=== PATIENT | female | born 1940 | race Asian ===

== ENCOUNTER 2016-11-30 12:17 | Inpatient (IN) | payer OTHER ==
[~2016-11-30] VITALS: Ht 154.9 cm; Wt 45.7 kg
[2016-11-30] MEDS ORDERED: IOVERSOL 350 MG/ML 100 ML VIAL ONE (12:46)
[2016-11-30] MEDS ORDERED: SODIUM CHLORIDE 0.9% 100 ML ONE (12:46)
[2016-11-30 13:35] LABS: EOSINOPHILS % (AUTO) 1.6 % (1.0-6.0); HEMOGLOBIN 12.3 g/dL (12.0-16.0); LYMPHOCYTES # (AUTO) 1.9 K/uL (1.0-4.8); LYMPHOCYTES % (AUTO) 29.3 % (22.0-44.0); MEAN CORPUSCULAR HEMOGLOBIN 26.3 pg (26.0-34.0); MEAN CORPUSCULAR HGB CONC 32.3 G/dL (31.0-37.0); MEAN CORPUSCULAR VOLUME 81 fL (80-100); MONOCYTES # (AUTO) 0.4 K/uL (0.1-1.0); MONOCYTES % (AUTO) 5.7 % (2.0-9.0); NEUTROPHILS # (AUTO) 4.1 K/uL (1.8-7.7); NEUTROPHILS % (AUTO) 62.4 % (40.0-70.0); PLATELET COUNT (AUTO) 313 K/uL (150-450); RED BLOOD CELL COUNT(AUTO) 4.66 MIL/uL (4.00-5.20); RED CELL DISTRIBUTION WIDTH 13.8 % (11.5-14.5); WHITE BLOOD COUNT (AUTO) 6.6 K/uL (4.5-11.0)
[2016-11-30 13:46] LABS: PROTHROMBIN TIME 10.8 SEC (9.4-11.6)
[2016-11-30 13:49] LABS: ANION GAP 3 mmol/L (8-16); CALCIUM, TOTAL 8.5 mg/dL (8.8-10.5); CARBON DIOXIDE 30 mmol/L (22-29); CHLORIDE 102 mmol/L (98-107); CREATININE 0.63 mg/dL (0.60-1.30); GLOMERULAR FILTR. RATE CALC > 60 mL/min (>60); SODIUM SERUM 135 mmol/L (136-145); UREA NITROGEN, BLOOD 15 mg/dL (7-18)
[2016-11-30 13:55] LABS: ALANINE AMINOTRANSFERASE 15 U/L (12-78); ALBUMIN 3.3 g/dL (3.4-5.0); ASPARTATE AMINOTRANSFERASE 13 U/L (15-37); BILIRUBIN,TOTAL 0.3 mg/dL (0.1-1.0); CREATINE KINASE, TOTAL 33 U/L (26-192); TOTAL PROTEIN, SERUM 6.8 g/dL (6.4-8.2)
[2016-11-30 14:45] LABS: APPEARANCE,URINE CLEAR (CLEAR); GLUCOSE, URINE (UA) NEGATIVE (NEGATIVE); KETONES,URINE NEGATIVE (NEGATIVE); LEUKOCYTE ESTERASE ,URINE NEGATIVE (NEGATIVE); OCCULT BLOOD,URINE NEGATIVE (NEGATIVE); PH,URINE 7.5 (5.0-8.0); PROTEIN,URINE NEGATIVE (NEGATIVE)
[2016-11-30 14:48] LABS: ADD UA MICROSCOPIC NO
[2016-11-30] MEDS ORDERED: ASPIRIN 325 MG EC TABLET PO ONE ×2 (15:00)
[2016-11-30] MEDS: ASPIRIN 325 MG TABLET PO SCH (15:27)
[2016-11-30] MEDS ORDERED: MAGNESIUM HYDROXIDE SUSPENSION 30 ML UDCUP PO PRN (15:30)
[2016-11-30] MEDS ORDERED: CloNIDine HCL 0.1 MG TABLET PO PRN (15:30)
[2016-11-30] MEDS ORDERED: ACETAMINOPHEN 325 MG TABLET PO PRN ×2 (15:30→16:15)
[2016-11-30] MEDS ORDERED: ALBUTEROL SULFATE 2.5 MG/0.5 ML NEB SOLUTION NEB PRN (15:30)
[2016-11-30] MEDS ORDERED: 0.9% SODIUM CHLORIDE 10 ML SYRINGE IVP PRN (16:15)
[2016-11-30] MEDS ORDERED: ONDANSETRON HCL 4 MG/2 ML VIAL IVP PRN (16:15)
[2016-11-30] MEDS ORDERED: GADOBUTROL 1 MMOL/ML 10 ML VIAL IVP ONE (16:30)
[2016-11-30] MEDS: SIMVASTATIN 40 MG TABLET PO SCH (17:37)
[2016-11-30] MEDS: AmLODIPine BESYLATE 10 MG TABLET PO SCH (17:37)
[2016-11-30] MEDS: HEPARIN SODIUM,PORCINE 5,000 UNITS/ML VIAL SQ SCH (17:37)
[2016-11-30 23:01] VITALS: BP 176/100
[2016-11-30] MEDS: DOCUSATE SODIUM 100 MG CAPSULE PO SCH (23:04)
[2016-11-30] MEDS: LOSARTAN POTASSIUM 25 MG TABLET PO SCH (23:12)
[2016-12-01] MEDS: HEPARIN SODIUM,PORCINE 5,000 UNITS/ML VIAL SQ SCH ×4 (00:28→23:53)
[2016-12-01 04:00] VITALS: BP 112/74
[2016-12-01] MEDS ORDERED: INFLUENZA VIRUS VACCINE QVS 2016-17 (3YR+)/PF 60 MCG/0.5 ML SYRINGE IM ONE (04:30)
[2016-12-01] MEDS ORDERED: PNEUMOCOCCAL VACCINE POLYVALENT 0.5 ML VIAL [PPSV23] IM ONE (05:45)
[2016-12-01 07:20] VITALS: BP 125/58
[2016-12-01] MEDS: SIMVASTATIN 40 MG TABLET PO SCH (08:11)
[2016-12-01] MEDS: LOSARTAN POTASSIUM 25 MG TABLET PO SCH ×2 (08:11→23:53)
[2016-12-01] MEDS: ASPIRIN 325 MG TABLET PO SCH (08:11)
[2016-12-01] MEDS: DOCUSATE SODIUM 100 MG CAPSULE PO SCH ×2 (08:11→20:34)
[2016-12-01] MEDS: PANTOPRAZOLE SODIUM 40 MG DR TABLET PO SCH (08:11)
[2016-12-01] MEDS: AmLODIPine BESYLATE 10 MG TABLET PO SCH (08:11)
[2016-12-01 11:23] VITALS: BP 111/70
[2016-12-01 16:09] VITALS: BP 104/74
[2016-12-01] MEDS ORDERED: SODIUM CHLORIDE 0.9% 1,000 ML IV ONE (16:38)
[2016-12-01 19:18] VITALS: BP 109/66
[2016-12-01 23:47] VITALS: BP 114/72
[2016-12-02 04:16] VITALS: BP 119/70
[2016-12-02 07:23] VITALS: BP 131/72
[2016-12-02] MEDS: HEPARIN SODIUM,PORCINE 5,000 UNITS/ML VIAL SQ SCH ×2 (08:33→15:05)
[2016-12-02] MEDS: SIMVASTATIN 40 MG TABLET PO SCH (08:34)
[2016-12-02] MEDS: PANTOPRAZOLE SODIUM 40 MG DR TABLET PO SCH (08:34)
[2016-12-02] MEDS: AmLODIPine BESYLATE 10 MG TABLET PO SCH (08:34)
[2016-12-02] MEDS: LOSARTAN POTASSIUM 25 MG TABLET PO SCH (08:34)
[2016-12-02] MEDS: DOCUSATE SODIUM 100 MG CAPSULE PO SCH (08:34)
[2016-12-02] MEDS: ASPIRIN 325 MG TABLET PO SCH (08:36)
[2016-12-02 11:10] VITALS: BP 126/71
[2016-12-02] MEDS ORDERED: DSS100 PO (13:39)
[2016-12-02] MEDS ORDERED: AMLO-512 PO (13:39)
[2016-12-02] MEDS ORDERED: ASPI81 PO (13:39)
[2016-12-02] MEDS ORDERED: HEPA500017 SQ (13:40)
[2016-12-02] MEDS ORDERED: SIMV-261 PO (13:41)
[2016-12-02] MEDS ORDERED: PANT40TA25 PO (13:41)
[2016-12-02] MEDS ORDERED: LOSA25TA21 PO (13:41)
[2016-12-02] MEDS ORDERED: ACET-2247 PO (13:42)
[2016-12-02] MEDS ORDERED: ALBU2.5V2 NEB (13:44)
[2016-12-02] MEDS ORDERED: MOM30 PO (13:44)
[2016-12-02] MEDS ORDERED: CLON.1 PO (13:44)
== END 2016-12-02 15:13 | DRG 65 ==
LOC: EDUNIT# 12:17 → EMS 12:20 → 5S 18:11 → 5N 12-01 14:14
PROVIDERS: ADMIT Internal Medicine; ATTEND Internal Medicine
PROC: 3E0234Z Introduction of Serum, Toxoid and Vaccine into Muscle, Percutaneous Approach (ICD-10-PCS; principal; 2016-12-02)
PROC: 3E0234Z Introduction of Serum, Toxoid and Vaccine into Muscle, Percutaneous Approach (ICD-10-PCS; 2016-12-02)
DX: I63.8 Other cerebral infarction (principal); I16.1 Hypertensive emergency; E44.0 Moderate protein-calorie malnutrition; R47.01 Aphasia; I10 Essential (primary) hypertension; Z86.73 Personal history of transient ischemic attack (TIA), and cerebral infarction without residual deficits; Z82.49 Family history of ischemic heart disease and other diseases of the circulatory system; Z23 Encounter for immunization
CPT/HCPCS: 70496; 70544; 70553; 90471; 92507; 92521; 93005; 93306; 93880; 97110; 97116; 97162; 97166; 97530; 97535; 99285; A9585; J1644; J7030; J7050

== ENCOUNTER 2016-12-02 15:15 | Inpatient (IN) | payer OTHER ==
[~2016-12-02] VITALS: Ht 134.6 cm; Wt 41.7 kg
[~2016-12-02 15:15] MED LIST: ACET-2247 PO; ALBU2.5V2 NEB; AMLO-512 PO; ASPI81 PO; CLON.1 PO; DSS100 PO; HEPA500017 SQ; LOSA25TA21 PO; MOM30 PO; PANT40TA25 PO; SIMV-261 PO
[2016-12-02 15:30] VITALS: BP 123/83
[2016-12-02 16:11] VITALS: BP 128/83
[2016-12-02] MEDS ORDERED: ALBUTEROL SULFATE 2.5 MG/0.5 ML NEB SOLUTION NEB PRN (16:30)
[2016-12-02] MEDS ORDERED: MAGNESIUM HYDROXIDE SUSPENSION 30 ML UDCUP PO PRN (16:30)
[2016-12-02] MEDS ORDERED: ACETAMINOPHEN 325 MG TABLET PO PRN (16:30)
[2016-12-02] MEDS ORDERED: CloNIDine HCL 0.1 MG TABLET PO PRN (16:30)
[2016-12-02 20:10] VITALS: BP 134/83
[2016-12-02] MEDS: DOCUSATE SODIUM 100 MG CAPSULE PO SCH (20:19)
[2016-12-02] MEDS: SENNA 187 MG TABLET PO SCH (20:19)
[2016-12-02] MEDS: LOSARTAN POTASSIUM 25 MG TABLET PO SCH (20:20)
[2016-12-02] MEDS: HEPARIN SODIUM,PORCINE 5,000 UNITS/ML VIAL SQ SCH (23:27)
[2016-12-03 00:24] VITALS: BP 145/91
[2016-12-03 01:42] LABS: APPEARANCE,URINE TURBID (CLEAR); GLUCOSE, URINE (UA) NEGATIVE (NEGATIVE); KETONES,URINE NEGATIVE (NEGATIVE); LEUKOCYTE ESTERASE ,URINE NEGATIVE (NEGATIVE); OCCULT BLOOD,URINE NEGATIVE (NEGATIVE); PH,URINE 7.5 (5.0-8.0); PROTEIN,URINE NEGATIVE (NEGATIVE)
[2016-12-03 01:52] LABS: RBC,URINE 0-2 /HPF (0-2); WBC,URINE 0-2 /HPF (0-5)
[2016-12-03 01:53] LABS: AMORPHOUS SEDIMENT,UR Many /LPF (None Seen)
[2016-12-03 05:00] VITALS: BP 151/86
[2016-12-03] MEDS: DOCUSATE SODIUM 283 MG/5 ML MINI-ENEMA PR PRN (05:56)
[2016-12-03 06:44] LABS: BASOPHILS % (AUTO) 0.8 % (0.0-2.0); EOSINOPHILS % (AUTO) 1.2 % (1.0-6.0); HEMATOCRIT 39.6 % (36-46); HEMOGLOBIN 12.7 g/dL (12.0-16.0); LYMPHOCYTES % (AUTO) 21.7 % (22.0-44.0); MEAN CORPUSCULAR HEMOGLOBIN 26.1 pg (26.0-34.0); MEAN CORPUSCULAR HGB CONC 32.1 G/dL (31.0-37.0); MEAN CORPUSCULAR VOLUME 81 fL (80-100); MONOCYTES # (AUTO) 0.6 K/uL (0.1-1.0); MONOCYTES % (AUTO) 6.8 % (2.0-9.0); NEUTROPHILS # (AUTO) 6.3 K/uL (1.8-7.7); NEUTROPHILS % (AUTO) 69.5 % (40.0-70.0); PLATELET COUNT (AUTO) 309 K/uL (150-450); RED BLOOD CELL COUNT(AUTO) 4.87 MIL/uL (4.00-5.20); RED CELL DISTRIBUTION WIDTH 13.9 % (11.5-14.5); WHITE BLOOD COUNT (AUTO) 9.1 K/uL (4.5-11.0)
[2016-12-03 06:59] LABS: ALANINE AMINOTRANSFERASE 19 U/L (12-78); ALBUMIN 3.3 g/dL (3.4-5.0); ANION GAP 6 mmol/L (8-16); ASPARTATE AMINOTRANSFERASE 16 U/L (15-37); BILIRUBIN,TOTAL 0.4 mg/dL (0.1-1.0); CALCIUM, TOTAL 8.7 mg/dL (8.8-10.5); CARBON DIOXIDE 30 mmol/L (22-29); CHLORIDE 106 mmol/L (98-107); GLOMERULAR FILTR. RATE CALC > 60 mL/min (>60); POTASSIUM 3.9 mmol/L (3.5-5.1); SODIUM SERUM 142 mmol/L (136-145); TOTAL PROTEIN, SERUM 7.2 g/dL (6.4-8.2); UREA NITROGEN, BLOOD 18 mg/dL (7-18)
[2016-12-03 07:24] VITALS: BP 156/86
[2016-12-03] MEDS: PANTOPRAZOLE SODIUM 40 MG DR TABLET PO SCH (08:15)
[2016-12-03] MEDS: LOSARTAN POTASSIUM 25 MG TABLET PO SCH ×2 (08:15→20:36)
[2016-12-03] MEDS: DOCUSATE SODIUM 100 MG CAPSULE PO SCH ×2 (08:15→20:36)
[2016-12-03] MEDS: AmLODIPine BESYLATE 10 MG TABLET PO SCH (08:15)
[2016-12-03] MEDS: HEPARIN SODIUM,PORCINE 5,000 UNITS/ML VIAL SQ SCH ×3 (08:20→23:44)
[2016-12-03] MEDS ORDERED: SIMVASTATIN 40 MG TABLET PO SCH (09:00)
[2016-12-03] MEDS ORDERED: ASPIRIN 81 MG CHEWABLE TABLET PO SCH (09:00)
[2016-12-03 12:15] VITALS: BP 140/80
[2016-12-03] MEDS ORDERED: *NON-FORMULARY MED [ENTER DRUG, DOSE, FREQ IN COMMENTS] CLINICAL ONE ×2 (12:45)
[2016-12-03] MEDS: IBUPROFEN 400 MG TABLET PO PRN (13:20)
[2016-12-03] MEDS: [UNRECOGNIZED DRUG - OTHER] OU SCH ×2 (13:21→20:36)
[2016-12-03] MEDS: NAPHAZOLINE HCL OU SCH ×2 (13:21→20:36)
[2016-12-03 15:16] VITALS: BP 133/69
[2016-12-03 20:34] VITALS: BP 146/74
[2016-12-03] MEDS: SENNA 187 MG TABLET PO SCH (20:36)
[2016-12-03] MEDS: FLUTICASONE/SALMETEROL 250 MCG-50 MCG/INH DISKUS INHALER [28] IH SCH (20:36)
[2016-12-04] VITALS: BP 143/90
[2016-12-04] MEDS: DOCUSATE SODIUM 283 MG/5 ML MINI-ENEMA PR PRN (04:46)
[2016-12-04] MEDS: ALENDRONATE SODIUM 70 MG TABLET PO SCH (05:10)
[2016-12-04] MEDS: ACETAMINOPHEN 325 MG TABLET PO PRN (05:11)
[2016-12-04 07:51] VITALS: BP 147/91
[2016-12-04] MEDS: AmLODIPine BESYLATE 10 MG TABLET PO SCH (08:28)
[2016-12-04] MEDS: HEPARIN SODIUM,PORCINE 5,000 UNITS/ML VIAL SQ SCH ×2 (08:28→17:10)
[2016-12-04] MEDS: CITALOPRAM HYDROBROMIDE 20 MG TABLET PO SCH (08:29)
[2016-12-04] MEDS: ATORVASTATIN CALCIUM 40 MG TABLET PO SCH (08:29)
[2016-12-04] MEDS: FLUTICASONE/SALMETEROL 250 MCG-50 MCG/INH DISKUS INHALER [28] IH SCH ×2 (08:29→20:57)
[2016-12-04] MEDS: LOSARTAN POTASSIUM 25 MG TABLET PO SCH ×2 (08:29→20:57)
[2016-12-04] MEDS: CHOLECALCIFEROL (VIT D3) 400 UNITS TABLET PO SCH (08:29)
[2016-12-04] MEDS: FLUTICASONE PROPIONATE 50 MCG/SPRAY 16 GM NASAL SPRAY NASAL SCH (08:29)
[2016-12-04] MEDS: DOCUSATE SODIUM 100 MG CAPSULE PO SCH ×3 (08:29→20:57)
[2016-12-04] MEDS: PANTOPRAZOLE SODIUM 40 MG DR TABLET PO SCH (08:29)
[2016-12-04] MEDS: LISINOPRIL 10 MG TABLET PO SCH (08:29)
[2016-12-04] MEDS: NAPHAZOLINE HCL OU SCH ×2 (08:30→20:57)
[2016-12-04] MEDS: [UNRECOGNIZED DRUG - OTHER] OU SCH ×2 (08:30→20:57)
[2016-12-04] MEDS ORDERED: ASPIRIN/DIPYRIDAMOLE ER 25/200 MG ER CAPSULE PO SCH (09:00)
[2016-12-04] MEDS ORDERED: HYPROMELLOSE 0.5% 15 ML OPHTHALMIC SOLUTION OU PRN (12:30)
[2016-12-04] MEDS: NYSTATIN 500,000 UNITS/5 ML SUSPENSION UDCUP PO SCH ×2 (17:10→20:57)
[2016-12-04 17:45] VITALS: BP 149/88
[2016-12-04] MEDS: IBUPROFEN 400 MG TABLET PO PRN (17:56)
[2016-12-04 20:55] VITALS: BP 157/86
[2016-12-04] MEDS: SENNA 187 MG TABLET PO SCH (20:57)
[2016-12-05] MEDS: HEPARIN SODIUM,PORCINE 5,000 UNITS/ML VIAL SQ SCH ×3 (00:49→20:39)
[2016-12-05 02:00] VITALS: BP 157/86
[2016-12-05] MEDS: ACETAMINOPHEN 325 MG TABLET PO PRN (02:50)
[2016-12-05] MEDS: DOCUSATE SODIUM 283 MG/5 ML MINI-ENEMA PR PRN (05:45)
[2016-12-05 07:00] VITALS: BP 111/58
[2016-12-05] MEDS: FLUTICASONE PROPIONATE 50 MCG/SPRAY 16 GM NASAL SPRAY NASAL SCH (09:06)
[2016-12-05] MEDS: FLUTICASONE/SALMETEROL 250 MCG-50 MCG/INH DISKUS INHALER [28] IH SCH ×2 (09:06→20:39)
[2016-12-05] MEDS: NAPHAZOLINE HCL OU SCH (09:07)
[2016-12-05] MEDS: [UNRECOGNIZED DRUG - OTHER] OU SCH (09:07)
[2016-12-05] MEDS: ASPIRIN 81 MG CHEWABLE TABLET PO SCH (09:07)
[2016-12-05] MEDS: CITALOPRAM HYDROBROMIDE 20 MG TABLET PO SCH (09:08)
[2016-12-05] MEDS: DOCUSATE SODIUM 100 MG CAPSULE PO SCH ×2 (09:08→20:39)
[2016-12-05] MEDS: AmLODIPine BESYLATE 10 MG TABLET PO SCH (09:09)
[2016-12-05] MEDS: NYSTATIN 500,000 UNITS/5 ML SUSPENSION UDCUP PO SCH ×3 (09:09→20:39)
[2016-12-05] MEDS: ATORVASTATIN CALCIUM 40 MG TABLET PO SCH (09:09)
[2016-12-05] MEDS: LISINOPRIL 10 MG TABLET PO SCH (09:10)
[2016-12-05] MEDS: CLOPIDOGREL BISULFATE 75 MG TABLET PO SCH (09:10)
[2016-12-05] MEDS: PANTOPRAZOLE SODIUM 40 MG DR TABLET PO SCH (09:10)
[2016-12-05] MEDS: CHOLECALCIFEROL (VIT D3) 400 UNITS TABLET PO SCH (09:10)
[2016-12-05] MEDS: LOSARTAN POTASSIUM 25 MG TABLET PO SCH ×2 (09:11→20:39)
[2016-12-05 15:38] VITALS: BP 136/65
[2016-12-05 20:38] VITALS: BP 132/73
[2016-12-05] MEDS: SENNA 187 MG TABLET PO SCH (20:39)
[2016-12-05] MEDS: NAPHAZOLINE/PHENIR 0.025-0.3% 15 ML OPHTHALMIC SOLUTION OU SCH (20:40)
[2016-12-06] VITALS: BP 143/76
[2016-12-06] MEDS: CHOLECALCIFEROL (VIT D3) 400 UNITS TABLET PO SCH (08:13)
[2016-12-06] MEDS: FLUTICASONE PROPIONATE 50 MCG/SPRAY 16 GM NASAL SPRAY NASAL SCH (08:13)
[2016-12-06] MEDS: FLUTICASONE/SALMETEROL 250 MCG-50 MCG/INH DISKUS INHALER [28] IH SCH ×2 (08:13→21:14)
[2016-12-06] MEDS: NYSTATIN 500,000 UNITS/5 ML SUSPENSION UDCUP PO SCH ×3 (08:13→22:01)
[2016-12-06] MEDS: LOSARTAN POTASSIUM 25 MG TABLET PO SCH ×2 (08:14→21:14)
[2016-12-06] MEDS: DOCUSATE SODIUM 100 MG CAPSULE PO SCH ×2 (08:14→21:14)
[2016-12-06] MEDS: CLOPIDOGREL BISULFATE 75 MG TABLET PO SCH (08:14)
[2016-12-06] MEDS: ASPIRIN 81 MG CHEWABLE TABLET PO SCH (08:14)
[2016-12-06] MEDS: ATORVASTATIN CALCIUM 40 MG TABLET PO SCH (08:14)
[2016-12-06] MEDS: PANTOPRAZOLE SODIUM 40 MG DR TABLET PO SCH (08:14)
[2016-12-06] MEDS: CITALOPRAM HYDROBROMIDE 20 MG TABLET PO SCH (08:15)
[2016-12-06] MEDS: HEPARIN SODIUM,PORCINE 5,000 UNITS/ML VIAL SQ SCH ×2 (08:15→21:14)
[2016-12-06] MEDS: AmLODIPine BESYLATE 10 MG TABLET PO SCH (08:17)
[2016-12-06] MEDS: NAPHAZOLINE/PHENIR 0.025-0.3% 15 ML OPHTHALMIC SOLUTION OU SCH ×2 (08:18→21:14)
[2016-12-06 08:23] VITALS: BP 142/69
[2016-12-06] MEDS: LISINOPRIL 10 MG TABLET PO SCH (12:55)
[2016-12-06] MEDS ORDERED: SODIUM CHLORIDE 0.9% 500 ML IV ONE (13:30)
[2016-12-06 15:46] VITALS: BP 121/49
[2016-12-06 21:00] VITALS: BP 144/79
[2016-12-06] MEDS: SENNA 187 MG TABLET PO SCH (21:14)
[2016-12-07 00:07] VITALS: BP 115/72
[2016-12-07 07:30] VITALS: BP 139/72
[2016-12-07] MEDS: NAPHAZOLINE/PHENIR 0.025-0.3% 15 ML OPHTHALMIC SOLUTION OU SCH ×2 (09:28→20:25)
[2016-12-07] MEDS: FLUTICASONE PROPIONATE 50 MCG/SPRAY 16 GM NASAL SPRAY NASAL SCH (09:28)
[2016-12-07] MEDS: FLUTICASONE/SALMETEROL 250 MCG-50 MCG/INH DISKUS INHALER [28] IH SCH ×2 (09:28→20:25)
[2016-12-07] MEDS: AmLODIPine BESYLATE 10 MG TABLET PO SCH (09:29)
[2016-12-07] MEDS: ATORVASTATIN CALCIUM 40 MG TABLET PO SCH (09:29)
[2016-12-07] MEDS: LOSARTAN POTASSIUM 25 MG TABLET PO SCH ×2 (09:29→20:26)
[2016-12-07] MEDS: CLOPIDOGREL BISULFATE 75 MG TABLET PO SCH (09:29)
[2016-12-07] MEDS: DOCUSATE SODIUM 100 MG CAPSULE PO SCH ×3 (09:29→20:43)
[2016-12-07] MEDS: ASPIRIN 81 MG CHEWABLE TABLET PO SCH (09:29)
[2016-12-07] MEDS: PANTOPRAZOLE SODIUM 40 MG DR TABLET PO SCH (09:29)
[2016-12-07] MEDS: CITALOPRAM HYDROBROMIDE 20 MG TABLET PO SCH (09:29)
[2016-12-07] MEDS: NYSTATIN 500,000 UNITS/5 ML SUSPENSION UDCUP PO SCH ×3 (09:30→20:36)
[2016-12-07] MEDS: HEPARIN SODIUM,PORCINE 5,000 UNITS/ML VIAL SQ SCH ×2 (09:30→20:26)
[2016-12-07] MEDS: CHOLECALCIFEROL (VIT D3) 400 UNITS TABLET PO SCH (09:30)
[2016-12-07] MEDS: LISINOPRIL 10 MG TABLET PO SCH (12:41)
[2016-12-07 15:35] VITALS: BP 114/51
[2016-12-07] MEDS: SENNA 187 MG TABLET PO SCH ×2 (20:26→20:44)
[2016-12-07 21:00] VITALS: BP 142/74
[2016-12-08 00:41] VITALS: BP 147/87
[2016-12-08 08:09] VITALS: BP 127/76
[2016-12-08] MEDS: FLUTICASONE/SALMETEROL 250 MCG-50 MCG/INH DISKUS INHALER [28] IH SCH ×2 (08:34→20:34)
[2016-12-08] MEDS: NAPHAZOLINE/PHENIR 0.025-0.3% 15 ML OPHTHALMIC SOLUTION OU SCH ×2 (08:34→20:34)
[2016-12-08] MEDS: ASPIRIN 81 MG CHEWABLE TABLET PO SCH (08:34)
[2016-12-08] MEDS: FLUTICASONE PROPIONATE 50 MCG/SPRAY 16 GM NASAL SPRAY NASAL SCH (08:34)
[2016-12-08] MEDS: CITALOPRAM HYDROBROMIDE 20 MG TABLET PO SCH ×2 (08:35→09:00)
[2016-12-08] MEDS: DOCUSATE SODIUM 100 MG CAPSULE PO SCH ×2 (08:35→20:32)
[2016-12-08] MEDS: NYSTATIN 500,000 UNITS/5 ML SUSPENSION UDCUP PO SCH ×3 (08:35→20:32)
[2016-12-08] MEDS: LOSARTAN POTASSIUM 25 MG TABLET PO SCH ×3 (08:35→20:33)
[2016-12-08] MEDS: ATORVASTATIN CALCIUM 40 MG TABLET PO SCH ×2 (08:35→09:00)
[2016-12-08] MEDS: CHOLECALCIFEROL (VIT D3) 400 UNITS TABLET PO SCH (08:36)
[2016-12-08] MEDS: CLOPIDOGREL BISULFATE 75 MG TABLET PO SCH (08:36)
[2016-12-08] MEDS: HEPARIN SODIUM,PORCINE 5,000 UNITS/ML VIAL SQ SCH ×2 (08:36→20:33)
[2016-12-08] MEDS: PANTOPRAZOLE SODIUM 40 MG DR TABLET PO SCH ×2 (08:36→09:00)
[2016-12-08] MEDS: AmLODIPine BESYLATE 10 MG TABLET PO SCH (08:36)
[2016-12-08] MEDS: LISINOPRIL 10 MG TABLET PO SCH (13:04)
[2016-12-08 15:52] VITALS: BP 143/70
[2016-12-08] MEDS: SENNA 187 MG TABLET PO SCH (20:32)
[2016-12-08 20:35] VITALS: BP 136/77
[2016-12-09 01:23] VITALS: BP 129/72
[2016-12-09] MEDS ORDERED: CITA20TA9 PO (04:22)
[2016-12-09] MEDS ORDERED: ADV250 IH (04:22)
[2016-12-09] MEDS ORDERED: FLUT16H NASAL (04:22)
[2016-12-09] MEDS ORDERED: ACET-2123 PO (04:22)
[2016-12-09] MEDS ORDERED: UMEC1DIS IH (04:22)
[2016-12-09] MEDS ORDERED: ASPI1CPM8 PO (04:22)
[2016-12-09] MEDS ORDERED: ALBU8.5H IH (04:22)
[2016-12-09] MEDS ORDERED: LISI-661 PO (04:22)
[2016-12-09] MEDS ORDERED: ATOR40TA28 PO (04:22)
[2016-12-09] MEDS ORDERED: ALEN70TA48 PO (04:22)
[2016-12-09] MEDS ORDERED: VITAD400 PO (04:22)
[2016-12-09] MEDS: FAMOTIDINE 20 MG TABLET PO SCH (06:07)
[2016-12-09 07:30] VITALS: BP 137/73
[2016-12-09] MEDS: DOCUSATE SODIUM 100 MG CAPSULE PO SCH ×2 (09:00→20:55)
[2016-12-09] MEDS: FLUTICASONE/SALMETEROL 250 MCG-50 MCG/INH DISKUS INHALER [28] IH SCH ×2 (09:04→20:54)
[2016-12-09] MEDS: CHOLECALCIFEROL (VIT D3) 400 UNITS TABLET PO SCH (09:05)
[2016-12-09] MEDS: FLUTICASONE PROPIONATE 50 MCG/SPRAY 16 GM NASAL SPRAY NASAL SCH (09:05)
[2016-12-09] MEDS: NAPHAZOLINE/PHENIR 0.025-0.3% 15 ML OPHTHALMIC SOLUTION OU SCH ×2 (09:05→20:54)
[2016-12-09] MEDS: LOSARTAN POTASSIUM 25 MG TABLET PO SCH ×2 (09:06→20:54)
[2016-12-09] MEDS: ATORVASTATIN CALCIUM 40 MG TABLET PO SCH (09:06)
[2016-12-09] MEDS: AmLODIPine BESYLATE 10 MG TABLET PO SCH (09:06)
[2016-12-09] MEDS: NYSTATIN 500,000 UNITS/5 ML SUSPENSION UDCUP PO SCH ×3 (09:06→20:54)
[2016-12-09] MEDS: HEPARIN SODIUM,PORCINE 5,000 UNITS/ML VIAL SQ SCH ×2 (09:07→20:55)
[2016-12-09] MEDS: CLOPIDOGREL BISULFATE 75 MG TABLET PO SCH (09:07)
[2016-12-09] MEDS: ASPIRIN 81 MG CHEWABLE TABLET PO SCH (09:07)
[2016-12-09] MEDS: LISINOPRIL 10 MG TABLET PO SCH (11:56)
[2016-12-09 16:15] VITALS: BP 109/62
[2016-12-09] MEDS: SENNA 187 MG TABLET PO SCH (20:54)
[2016-12-10] VITALS: BP 134/71
[2016-12-10] MEDS: FAMOTIDINE 20 MG TABLET PO SCH (05:54)
[2016-12-10 08:00] VITALS: BP 125/67
[2016-12-10] MEDS: FLUTICASONE/SALMETEROL 250 MCG-50 MCG/INH DISKUS INHALER [28] IH SCH ×2 (08:39→21:44)
[2016-12-10] MEDS: FLUTICASONE PROPIONATE 50 MCG/SPRAY 16 GM NASAL SPRAY NASAL SCH (08:40)
[2016-12-10] MEDS: DOCUSATE SODIUM 100 MG CAPSULE PO SCH ×2 (08:41→21:00)
[2016-12-10] MEDS: NAPHAZOLINE/PHENIR 0.025-0.3% 15 ML OPHTHALMIC SOLUTION OU SCH ×2 (08:41→21:44)
[2016-12-10] MEDS: ASPIRIN 81 MG CHEWABLE TABLET PO SCH (08:41)
[2016-12-10] MEDS: AmLODIPine BESYLATE 10 MG TABLET PO SCH (08:42)
[2016-12-10] MEDS: CHOLECALCIFEROL (VIT D3) 400 UNITS TABLET PO SCH (08:42)
[2016-12-10] MEDS: CLOPIDOGREL BISULFATE 75 MG TABLET PO SCH (08:42)
[2016-12-10] MEDS: LOSARTAN POTASSIUM 25 MG TABLET PO SCH ×2 (08:42→21:45)
[2016-12-10] MEDS: HEPARIN SODIUM,PORCINE 5,000 UNITS/ML VIAL SQ SCH ×2 (08:42→21:44)
[2016-12-10] MEDS: NYSTATIN 500,000 UNITS/5 ML SUSPENSION UDCUP PO SCH ×3 (08:42→21:43)
[2016-12-10] MEDS: LISINOPRIL 10 MG TABLET PO SCH (13:18)
[2016-12-10 15:33] VITALS: BP 116/62
[2016-12-10] MEDS: SENNA 187 MG TABLET PO SCH (21:00)
[2016-12-10] MEDS ORDERED: METHYL SALICYLATE/MENTHOL 120 GM CREAM TP SCH (21:00)
[2016-12-10] MEDS: METHYL SALICYLATE/MENTHOL 120 GM CREAM TP PRN (21:43)
[2016-12-10] MEDS: ATORVASTATIN CALCIUM 40 MG TABLET PO SCH (21:44)
[2016-12-10 21:49] VITALS: BP 118/61
[2016-12-10 23:46] VITALS: BP 142/86
[2016-12-11] MEDS: ALENDRONATE SODIUM 70 MG TABLET PO SCH (05:36)
[2016-12-11] MEDS: FAMOTIDINE 20 MG TABLET PO SCH (05:36)
[2016-12-11 07:30] VITALS: BP 137/70
[2016-12-11] MEDS: FLUTICASONE PROPIONATE 50 MCG/SPRAY 16 GM NASAL SPRAY NASAL SCH (08:14)
[2016-12-11] MEDS: FLUTICASONE/SALMETEROL 250 MCG-50 MCG/INH DISKUS INHALER [28] IH SCH ×2 (08:14→20:34)
[2016-12-11] MEDS: NAPHAZOLINE/PHENIR 0.025-0.3% 15 ML OPHTHALMIC SOLUTION OU SCH ×2 (08:14→20:34)
[2016-12-11] MEDS: AmLODIPine BESYLATE 10 MG TABLET PO SCH (08:15)
[2016-12-11] MEDS: CLOPIDOGREL BISULFATE 75 MG TABLET PO SCH (08:15)
[2016-12-11] MEDS: ASPIRIN 81 MG CHEWABLE TABLET PO SCH (08:15)
[2016-12-11] MEDS: LOSARTAN POTASSIUM 25 MG TABLET PO SCH ×2 (08:15→20:35)
[2016-12-11] MEDS: NYSTATIN 500,000 UNITS/5 ML SUSPENSION UDCUP PO SCH ×3 (08:15→20:35)
[2016-12-11] MEDS: HEPARIN SODIUM,PORCINE 5,000 UNITS/ML VIAL SQ SCH ×2 (08:16→20:35)
[2016-12-11] MEDS: CHOLECALCIFEROL (VIT D3) 400 UNITS TABLET PO SCH (08:16)
[2016-12-11] MEDS: DOCUSATE SODIUM 100 MG CAPSULE PO SCH ×2 (08:42→20:35)
[2016-12-11] MEDS: METHYL SALICYLATE/MENTHOL 120 GM CREAM TP PRN ×2 (09:19→23:55)
[2016-12-11] MEDS: LISINOPRIL 10 MG TABLET PO SCH (12:50)
[2016-12-11 15:30] VITALS: BP 113/59
[2016-12-11 20:33] VITALS: BP 127/68
[2016-12-11] MEDS: ATORVASTATIN CALCIUM 40 MG TABLET PO SCH (20:35)
[2016-12-11] MEDS: SENNA 187 MG TABLET PO SCH (20:35)
[2016-12-11 23:55] VITALS: BP 135/68
[2016-12-12] MEDS: FAMOTIDINE 20 MG TABLET PO SCH (05:47)
[2016-12-12 07:19] VITALS: BP 131/81
[2016-12-12] MEDS: CLOPIDOGREL BISULFATE 75 MG TABLET PO SCH (08:07)
[2016-12-12] MEDS: AmLODIPine BESYLATE 10 MG TABLET PO SCH (08:07)
[2016-12-12] MEDS: NYSTATIN 500,000 UNITS/5 ML SUSPENSION UDCUP PO SCH ×3 (08:07→20:44)
[2016-12-12] MEDS: CHOLECALCIFEROL (VIT D3) 400 UNITS TABLET PO SCH (08:07)
[2016-12-12] MEDS: ASPIRIN 81 MG CHEWABLE TABLET PO SCH (08:07)
[2016-12-12] MEDS: HEPARIN SODIUM,PORCINE 5,000 UNITS/ML VIAL SQ SCH ×2 (08:07→20:45)
[2016-12-12] MEDS: FLUTICASONE/SALMETEROL 250 MCG-50 MCG/INH DISKUS INHALER [28] IH SCH ×2 (08:08→20:44)
[2016-12-12] MEDS: LOSARTAN POTASSIUM 25 MG TABLET PO SCH ×2 (08:08→20:45)
[2016-12-12] MEDS: DOCUSATE SODIUM 100 MG CAPSULE PO SCH ×2 (08:08→20:44)
[2016-12-12] MEDS: FLUTICASONE PROPIONATE 50 MCG/SPRAY 16 GM NASAL SPRAY NASAL SCH (08:08)
[2016-12-12] MEDS: NAPHAZOLINE/PHENIR 0.025-0.3% 15 ML OPHTHALMIC SOLUTION OU SCH ×2 (08:08→20:44)
[2016-12-12 12:10] VITALS: BP 115/64
[2016-12-12] MEDS: LISINOPRIL 10 MG TABLET PO SCH (12:10)
[2016-12-12 15:47] VITALS: BP 134/64
[2016-12-12 20:43] VITALS: BP 123/64
[2016-12-12] MEDS: SENNA 187 MG TABLET PO SCH (20:44)
[2016-12-12] MEDS: ATORVASTATIN CALCIUM 40 MG TABLET PO SCH (20:44)
[2016-12-13] VITALS: BP 147/65
[2016-12-13] MEDS: FAMOTIDINE 20 MG TABLET PO SCH (05:56)
[2016-12-13 07:12] VITALS: BP 136/87
[2016-12-13] MEDS: DOCUSATE SODIUM 100 MG CAPSULE PO SCH ×3 (09:00→20:35)
[2016-12-13] MEDS: CHOLECALCIFEROL (VIT D3) 400 UNITS TABLET PO SCH (09:18)
[2016-12-13] MEDS: FLUTICASONE/SALMETEROL 250 MCG-50 MCG/INH DISKUS INHALER [28] IH SCH ×2 (09:18→20:35)
[2016-12-13] MEDS: NAPHAZOLINE/PHENIR 0.025-0.3% 15 ML OPHTHALMIC SOLUTION OU SCH ×2 (09:18→20:35)
[2016-12-13] MEDS: FLUTICASONE PROPIONATE 50 MCG/SPRAY 16 GM NASAL SPRAY NASAL SCH (09:19)
[2016-12-13] MEDS: LOSARTAN POTASSIUM 25 MG TABLET PO SCH ×2 (09:20→20:35)
[2016-12-13] MEDS: HEPARIN SODIUM,PORCINE 5,000 UNITS/ML VIAL SQ SCH ×2 (09:20→20:35)
[2016-12-13] MEDS: AmLODIPine BESYLATE 10 MG TABLET PO SCH (09:20)
[2016-12-13] MEDS: NYSTATIN 500,000 UNITS/5 ML SUSPENSION UDCUP PO SCH ×3 (09:20→20:35)
[2016-12-13] MEDS: ASPIRIN 81 MG CHEWABLE TABLET PO SCH (09:20)
[2016-12-13] MEDS: CLOPIDOGREL BISULFATE 75 MG TABLET PO SCH (09:20)
[2016-12-13 12:35] VITALS: BP 135/77
[2016-12-13] MEDS: LISINOPRIL 10 MG TABLET PO SCH (12:39)
[2016-12-13 15:58] VITALS: BP 97/63
[2016-12-13 20:15] VITALS: BP 122/78
[2016-12-13] MEDS: ATORVASTATIN CALCIUM 40 MG TABLET PO SCH (20:35)
[2016-12-13] MEDS: SENNA 187 MG TABLET PO SCH (20:35)
[2016-12-14] VITALS: BP 141/72
[2016-12-14] MEDS ORDERED: CLOP75 PO (04:43)
[2016-12-14] MEDS ORDERED: NAPHAOS OU (04:43)
[2016-12-14] MEDS ORDERED: SENN8.6T52 PO ×2 (04:43→13:12)
[2016-12-14] MEDS ORDERED: NYST5L PO (04:43)
[2016-12-14] MEDS ORDERED: FAMO20 PO (04:43)
[2016-12-14] MEDS ORDERED: HYPR15DR23 OU (04:51)
[2016-12-14] MEDS: FAMOTIDINE 20 MG TABLET PO SCH (06:03)
[2016-12-14 07:18] VITALS: BP 128/67
[2016-12-14] MEDS: LOSARTAN POTASSIUM 25 MG TABLET PO SCH (08:07)
[2016-12-14] MEDS: FLUTICASONE PROPIONATE 50 MCG/SPRAY 16 GM NASAL SPRAY NASAL SCH (08:07)
[2016-12-14] MEDS: ASPIRIN 81 MG CHEWABLE TABLET PO SCH (08:07)
[2016-12-14] MEDS: FLUTICASONE/SALMETEROL 250 MCG-50 MCG/INH DISKUS INHALER [28] IH SCH (08:07)
[2016-12-14] MEDS: NYSTATIN 500,000 UNITS/5 ML SUSPENSION UDCUP PO SCH (08:07)
[2016-12-14] MEDS: DOCUSATE SODIUM 100 MG CAPSULE PO SCH (08:08)
[2016-12-14] MEDS: CLOPIDOGREL BISULFATE 75 MG TABLET PO SCH (08:08)
[2016-12-14] MEDS: AmLODIPine BESYLATE 10 MG TABLET PO SCH (08:08)
[2016-12-14] MEDS: NAPHAZOLINE/PHENIR 0.025-0.3% 15 ML OPHTHALMIC SOLUTION OU SCH (08:08)
[2016-12-14] MEDS: CHOLECALCIFEROL (VIT D3) 400 UNITS TABLET PO SCH (08:08)
[2016-12-14] MEDS: HEPARIN SODIUM,PORCINE 5,000 UNITS/ML VIAL SQ SCH (08:09)
[2016-12-14 11:38] VITALS: BP 132/77
[2016-12-14] MEDS: LISINOPRIL 10 MG TABLET PO SCH (11:40)
[2016-12-14 15:00] VITALS: BP 120/72
== END 2016-12-14 15:45 | disposition home health service (06) | DRG 57 ==
LOC: OBSVTOIN 15:15 → 2WR 15:15
PROVIDERS: ADMIT Physical Medicine & Rehabilitation; ATTEND Physical Medicine & Rehabilitation
DX: I69.351 Hemiplegia and hemiparesis following cerebral infarction affecting right dominant side (principal); I69.322 Dysarthria following cerebral infarction; I69.391 Dysphagia following cerebral infarction; I69.398 Other sequelae of cerebral infarction; R13.10 Dysphagia, unspecified; I10 Essential (primary) hypertension; H35.30 Unspecified macular degeneration; F32.9 Major depressive disorder, single episode, unspecified; E78.00 Pure hypercholesterolemia, unspecified; E55.9 Vitamin D deficiency, unspecified; J44.9 Chronic obstructive pulmonary disease, unspecified; Z79.01 Long term (current) use of anticoagulants; Z79.82 Long term (current) use of aspirin; Z79.899 Other long term (current) drug therapy; Z87.891 Personal history of nicotine dependence; Z86.73 Personal history of transient ischemic attack (TIA), and cerebral infarction without residual deficits
CPT/HCPCS: 82271; 87081; 92507; 92508; 92523; 93970; 97110; 97112; 97116; 97150; 97162; 97167; 97530; 97535; 99366; J1644; J3535

== ENCOUNTER → 2017-02-27 | Outpatient (CLI) | payer OTHER ==
[~2017-02-27] MED LIST changes: +ADV250 IH; -ALBU2.5V2 NEB; +ALEN70TA48 PO; +ATOR40TA28 PO; -CLON.1 PO; +CLOP75 PO; +FAMO20 PO; -HEPA500017 SQ; +HYPR15DR23 OU; +LISI-661 PO; -LOSA25TA21 PO; -MOM30 PO; +NAPHAOS OU; +NYST5L PO; -PANT40TA25 PO; +SENN8.6T52 PO; -SIMV-261 PO; +VITAD400 PO
== END | disposition home or self-care (01) ==
LOC: RADPV 09:59
PROVIDERS: ATTEND Internal Medicine
DX: R13.10 Dysphagia, unspecified (principal)
CPT/HCPCS: 74230

== ENCOUNTER 2017-03-22 19:37 | Emergency (ER) | payer OTHER ==
[~2017-03-22] VITALS: Ht 144.8 cm; Wt 45.5 kg
[2017-03-22] MEDS ORDERED: DiphenhydrAMINE HCL 50 MG/ML VIAL IVP ONE (20:30)
[2017-03-22] MEDS ORDERED: MethylPREDNISolone SOD SUCC 125 MG/2 ML VIAL IVP ONE (20:30)
[2017-03-22] MEDS ORDERED: FAMOTIDINE 10 MG/ML 2 ML VIAL IVP ONE (20:30)
[2017-03-22 23:12] VITALS: BP 124/77
== END 2017-03-22 23:16 | disposition home or self-care (01) ==
LOC: EMS 19:40
DX: L50.0 Allergic urticaria (principal); I10 Essential (primary) hypertension; Z86.73 Personal history of transient ischemic attack (TIA), and cerebral infarction without residual deficits; Z79.82 Long term (current) use of aspirin
CPT/HCPCS: 96374; 96375; 99284; J1200; J2930; J3490

== ENCOUNTER 2017-11-21 03:48 | Inpatient (IN) | payer MEDICARE, MEDICAID ==
[~2017-11-21] VITALS: Ht 141 cm; Wt 46.2 kg
[~2017-11-21 03:48] MED LIST changes: -ASPI81 PO; -CLOP75 PO
[2017-11-21] MEDS ORDERED: CLOP75 PO (03:57)
[2017-11-21] MEDS ORDERED: FLUT16H NASAL (03:57)
[2017-11-21] MEDS ORDERED: ALBU8.5H8 IH (03:57)
[2017-11-21] MEDS ORDERED: ALBU8HFA4 IH (03:57)
[2017-11-21] MEDS ORDERED: PROZ10 PO (03:57)
[2017-11-21] MEDS ORDERED: NITROGLYCERIN 2% (1 GM=INCH) PACKET TP ONE (04:15)
[2017-11-21] MEDS ORDERED: ASPIRIN 81 MG CHEWABLE TABLET PO ONE (04:15)
[2017-11-21 04:51] LABS: BASOPHILS # (AUTO) 0.05 K/uL (0.00-0.20); BASOPHILS % (AUTO) 0.7 % (0.0-2.0); EOSINOPHILS % (AUTO) 1.38 % (1.0-6.0); HEMATOCRIT 40.3 % (36-46); HEMOGLOBIN 13.2 g/dL (12.0-16.0); LYMPHOCYTES % (AUTO) 27.6 % (22.0-44.0); MEAN CORPUSCULAR HEMOGLOBIN 27.1 pg (26.0-34.0); MEAN CORPUSCULAR HGB CONC 32.7 G/dL (31.0-37.0); MEAN CORPUSCULAR VOLUME 83 fL (80-100); MONOCYTES # (AUTO) 0.3 K/uL (0.1-1.0); MONOCYTES % (AUTO) 4.6 % (2.0-9.0); NEUTROPHILS # (AUTO) 4.7 K/uL (1.8-7.7); NEUTROPHILS % (AUTO) 65.7 % (40.0-70.0); PLATELET COUNT (AUTO) 278 K/uL (150-450); RED BLOOD CELL COUNT(AUTO) 4.87 MIL/uL (4.00-5.20); RED CELL DISTRIBUTION WIDTH 13.3 % (11.5-14.5)
[2017-11-21 04:59] LABS: ANION GAP 7 mmol/L (8-16); CALCIUM, TOTAL 8.8 mg/dL (8.8-10.5); CARBON DIOXIDE 29 mmol/L (22-29); CHLORIDE 100 mmol/L (98-107); CREATININE 0.65 mg/dL (0.60-1.30); GLOMERULAR FILTR. RATE CALC > 60 mL/min (>60); POTASSIUM 3.4 mmol/L (3.5-5.1); SODIUM SERUM 136 mmol/L (136-145); UREA NITROGEN, BLOOD 17 mg/dL (7-18)
[2017-11-21 05:01] LABS: PROTHROMBIN TIME 10.4 SEC (9.4-11.6)
[2017-11-21 05:07] LABS: GLUCOSE,RANDOM 103 mg/dL (70-110)
[2017-11-21 05:19] LABS: B-TYPE NATRIURETIC PEPTIDE 88 pg/mL (0-100)
[2017-11-21 05:25] LABS: ALANINE AMINOTRANSFERASE 16 U/L (12-78); ALKALINE PHOSPHATASE 71 U/L (46-116); ASPARTATE AMINOTRANSFERASE 16 U/L (15-37); BILIRUBIN,TOTAL 0.5 mg/dL (0.1-1.0); CREATINE KINASE MB 1.8 ng/mL (0-5); CREATINE KINASE, TOTAL 79 U/L (26-192); TOTAL PROTEIN, SERUM 8.1 g/dL (6.4-8.2)
[2017-11-21] MEDS ORDERED: MORPHINE SULFATE 4 MG/ML SYRINGE IVP ONE (05:30)
[2017-11-21] MEDS ORDERED: ONDANSETRON HCL 4 MG/2 ML VIAL IVP ONE (05:30)
[2017-11-21] MEDS ORDERED: NITROGLYCERIN 0.4 MG SUBLINGUAL TABLET #25 SL ONE (05:30)
[2017-11-21] MEDS ORDERED: ACETAMINOPHEN 325 MG TABLET PO PRN ×2 (06:00→12:30)
[2017-11-21] MEDS ORDERED: ONDANSETRON HCL 4 MG/2 ML VIAL IVP PRN ×2 (06:00→12:30)
[2017-11-21] MEDS ORDERED: 0.9% SODIUM CHLORIDE 10 ML SYRINGE IVP PRN (06:00)
[2017-11-21 09:01] VITALS: BP 152/70
[2017-11-21 11:19] VITALS: BP 103/61
[2017-11-21] MEDS ORDERED: ZOLPIDEM TARTRATE 10 MG TABLET PO PRN (12:30)
[2017-11-21] MEDS ORDERED: HYDROCODONE/ACETAMINOPHEN 5-325 MG TABLET PO PRN (12:30)
[2017-11-21] MEDS ORDERED: MAGNESIUM HYDROXIDE SUSPENSION 30 ML UDCUP PO PRN (12:30)
[2017-11-21] MEDS ORDERED: MORPHINE SULFATE 2 MG/ML SYRINGE IVP PRN (12:30)
[2017-11-21] MEDS ORDERED: IPRATROPIUM BROMIDE 0.5 MG/2.5 ML NEB SOLUTION NEB PRN (12:30)
[2017-11-21] MEDS ORDERED: POTASSIUM CHLORIDE 20 MEQ ER TABLET PO ONE (12:45)
[2017-11-21 15:38] VITALS: BP 121/73
[2017-11-21] MEDS: NITROGLYCERIN 2% (1 GM=INCH) PACKET TP SCH ×2 (18:11→23:59)
[2017-11-21 20:02] VITALS: BP 117/77
[2017-11-21] MEDS: DOCUSATE SODIUM 100 MG CAPSULE PO SCH (20:23)
[2017-11-21] MEDS ORDERED: ATORVASTATIN CALCIUM 40 MG TABLET PO SCH (21:00)
[2017-11-22 00:24] VITALS: BP 146/78
[2017-11-22 04:55] VITALS: BP 131/76
[2017-11-22] MEDS: NITROGLYCERIN 2% (1 GM=INCH) PACKET TP SCH ×2 (05:28→11:32)
[2017-11-22] MEDS ORDERED: ALENDRONATE SODIUM 70 MG TABLET PO SCH (06:30)
[2017-11-22] MEDS ORDERED: FAMOTIDINE 20 MG TABLET PO SCH (06:30)
[2017-11-22 07:42] LABS: CHOL/HDL RATIO 4.5 (3.9-5.7)
[2017-11-22] MEDS: DOCUSATE SODIUM 100 MG CAPSULE PO SCH (07:53)
[2017-11-22 07:56] VITALS: BP 127/72
[2017-11-22] MEDS ORDERED: AmLODIPine BESYLATE 10 MG TABLET PO SCH (09:00)
[2017-11-22] MEDS ORDERED: PANTOPRAZOLE SODIUM 40 MG/VIAL IVP SCH (09:00)
[2017-11-22] MEDS ORDERED: FLUoxetine HCL 10 MG CAPSULE PO SCH (09:00)
[2017-11-22] MEDS ORDERED: CLOPIDOGREL BISULFATE 75 MG TABLET PO SCH (09:00)
[2017-11-22] MEDS ORDERED: FLUTICASONE PROPIONATE 50 MCG/SPRAY 16 GM NASAL SPRAY NASAL SCH (09:00)
[2017-11-22] MEDS ORDERED: ASPIRIN 81 MG CHEWABLE TABLET PO SCH (09:00)
[2017-11-22 12:08] VITALS: BP 123/73
[2017-11-22 15:39] VITALS: BP 129/89
== END 2017-11-22 16:20 | disposition home or self-care (01) | DRG 313 ==
LOC: EMS 03:49 → 5S 08:15 → EMS 08:26
PROVIDERS: ADMIT Hospitalist; ATTEND Hospitalist
DX: R07.9 Chest pain, unspecified (principal); I11.9 Hypertensive heart disease without heart failure; E78.00 Pure hypercholesterolemia, unspecified; I16.1 Hypertensive emergency; M19.90 Unspecified osteoarthritis, unspecified site; Z91.14 Patient's other noncompliance with medication regimen; Z86.73 Personal history of transient ischemic attack (TIA), and cerebral infarction without residual deficits; Z82.49 Family history of ischemic heart disease and other diseases of the circulatory system; Z79.899 Other long term (current) drug therapy
CPT/HCPCS: 84132; 93005; 96374; 96375; 99285; C9113; J2270; J2405

== ENCOUNTER 2019-01-06 22:09 | Inpatient (IN) | payer MEDICAID, MEDICARE, OTHER ==
[~2019-01-06] VITALS: Ht 144.8 cm; Wt 45.2 kg
[~2019-01-06 22:09] MED LIST changes: -ACET-2247 PO; -ADV250 IH; +ALBU8.5H8 IH; +ALBU8HFA4 IH; +ALEN70TA10 PO; -ALEN70TA48 PO; +CLOP75TA3 PO; -DSS100 PO; +FLUT16H NASAL; -HYPR15DR23 OU; -LISI-661 PO; -NAPHAOS OU; -NYST5L PO; +PROZ10 PO; -SENN8.6T52 PO; -VITAD400 PO
[2019-01-06 23:01] LABS: BASOPHILS % (AUTO) 1.3 % (0.0-2.0); EOSINOPHILS % (AUTO) 2.8 % (1.0-6.0); HEMOGLOBIN 12.5 g/dL (12.0-16.0); LYMPHOCYTES # (AUTO) 1.7 K/uL (1.0-4.8); LYMPHOCYTES % (AUTO) 29.8 % (22.0-44.0); MEAN CORPUSCULAR HEMOGLOBIN 25.8 pg (26.0-34.0); MEAN CORPUSCULAR VOLUME 81 fL (80-100); MONOCYTES # (AUTO) 0.4 K/uL (0.1-1.0); MONOCYTES % (AUTO) 6.1 % (2.0-9.0); NEUTROPHILS # (AUTO) 3.5 K/uL (1.8-7.7); PLATELET COUNT (AUTO) 293 K/uL (150-450); RED BLOOD CELL COUNT(AUTO) 4.84 MIL/uL (4.00-5.20); RED CELL DISTRIBUTION WIDTH 13.4 % (11.5-14.5)
[2019-01-06 23:09] LABS: ANION GAP 7 mmol/L (8-16); CALCIUM, TOTAL 8.9 mg/dL (8.8-10.5); CARBON DIOXIDE 28 mmol/L (22-29); CHLORIDE 108 mmol/L (98-107); CREATININE 0.62 mg/dL (0.60-1.30); GLUCOSE,RANDOM 100 mg/dL (70-110); POTASSIUM 3.4 mmol/L (3.5-5.1); SODIUM SERUM 143 mmol/L (136-145); UREA NITROGEN, BLOOD 18 mg/dL (7-18)
[2019-01-06 23:10] LABS: GLOMERULAR FILTR. RATE CALC > 60 mL/min (>60)
[2019-01-06 23:13] LABS: INR 0.9 (0.9-1.1); PROTHROMBIN TIME 9.9 SEC (9.4-11.6)
[2019-01-06 23:15] LABS: ALANINE AMINOTRANSFERASE 17 U/L (12-78); ALBUMIN 3.4 g/dL (3.4-5.0); ALKALINE PHOSPHATASE 84 U/L (46-116); ASPARTATE AMINOTRANSFERASE 15 U/L (15-37); BILIRUBIN,TOTAL 0.2 mg/dL (0.1-1.0); CREATINE KINASE, TOTAL ONLY 49 U/L (26-192); TOTAL PROTEIN, SERUM 7.2 g/dL (6.4-8.2)
[2019-01-06 23:34] LABS: B-TYPE NATRIURETIC PEPTIDE 141 pg/mL (0-100)
[2019-01-07] MEDS ORDERED: ASPIRIN 81 MG CHEWABLE TABLET PO ONE
[2019-01-07] MEDS ORDERED: FAMO20 PO (00:47)
[2019-01-07] MEDS ORDERED: CLOP75TA3 PO (00:47)
[2019-01-07] MEDS ORDERED: FLUT16H NASAL (00:47)
[2019-01-07] MEDS ORDERED: ALEN70TA10 PO (00:47)
[2019-01-07] MEDS ORDERED: PROZ10 PO (00:47)
[2019-01-07] MEDS ORDERED: ATOR40TA28 PO (00:47)
[2019-01-07] MEDS ORDERED: ALBU8.5H8 IH (00:47)
[2019-01-07] MEDS ORDERED: AMLO-512 PO (00:47)
[2019-01-07] MEDS ORDERED: ACETAMINOPHEN 325 MG TABLET PO PRN (02:45)
[2019-01-07 05:01] VITALS: BP 158/96
[2019-01-07] MEDS ORDERED: PNEUMOCOCCAL VACCINE POLYVALENT 0.5 ML VIAL [PPSV23] IM ONE (06:15)
[2019-01-07] MEDS ORDERED: ONDANSETRON HCL 4 MG/2 ML VIAL IVP PRN (06:30)
[2019-01-07] MEDS ORDERED: 0.9% SODIUM CHLORIDE 10 ML SYRINGE IVP PRN (06:30)
[2019-01-07] MEDS ORDERED: IPRATROPIUM BROMIDE 0.5 MG/2.5 ML NEB SOLUTION NEB PRN (06:30)
[2019-01-07] MEDS ORDERED: ALBUTEROL SULFATE 2.5 MG/0.5 ML NEB SOLUTION NEB PRN (06:30)
[2019-01-07] MEDS ORDERED: ZOLPIDEM TARTRATE 5 MG TABLET PO PRN (06:30)
[2019-01-07 07:43] VITALS: BP 153/73
[2019-01-07] MEDS ORDERED: POTASSIUM CHLORIDE 20 MEQ ER TABLET PO PRN (08:00)
[2019-01-07] MEDS ORDERED: POTASSIUM CHL 10 MEQ/WATER 50 ML IV PRN (08:00)
[2019-01-07] MEDS: AmLODIPine BESYLATE 10 MG TABLET PO SCH (08:39)
[2019-01-07] MEDS: PANTOPRAZOLE SODIUM 40 MG/VIAL IVP SCH (08:39)
[2019-01-07] MEDS: ATORVASTATIN CALCIUM 20 MG TABLET PO SCH (08:39)
[2019-01-07] MEDS: CLOPIDOGREL BISULFATE 75 MG TABLET PO SCH (08:39)
[2019-01-07 08:55] LABS: APPEARANCE,URINE CLEAR (CLEAR); BILIRUBIN,URINE NEGATIVE (NEGATIVE); GLUCOSE, URINE (UA) NEGATIVE (NEGATIVE); KETONES,URINE NEGATIVE (NEGATIVE); LEUKOCYTE ESTERASE ,URINE NEGATIVE (NEGATIVE); NITRATE,URINE NEGATIVE (NEGATIVE); OCCULT BLOOD,URINE NEGATIVE (NEGATIVE); PH,URINE 6.5 (5.0-8.0); PROTEIN,URINE NEGATIVE (NEGATIVE); UROBILINOGEN,URINE 0.2 mg/dL (<=1.0)
[2019-01-07] MEDS: ALBUTEROL SULFATE 2.5 MG/0.5 ML NEB SOLUTION NEB SCH ×3 (09:17→20:53)
[2019-01-07] MEDS: IPRATROPIUM BROMIDE 0.5 MG/2.5 ML NEB SOLUTION NEB SCH ×3 (09:17→20:53)
[2019-01-07 11:16] VITALS: BP 148/84
[2019-01-07 13:38] VITALS: BP 162/108
[2019-01-07] MEDS: LISINOPRIL 20 MG TABLET PO SCH (14:01)
[2019-01-07 16:22] VITALS: BP 131/96
[2019-01-07 20:37] VITALS: BP 148/76
[2019-01-07] MEDS: METOPROLOL SUCCINATE 25 MG ER TABLET PO SCH (21:03)
[2019-01-08 00:11] VITALS: BP 149/80
[2019-01-08] MEDS: ALBUTEROL SULFATE 2.5 MG/0.5 ML NEB SOLUTION NEB SCH ×3 (02:00→14:58)
[2019-01-08] MEDS: IPRATROPIUM BROMIDE 0.5 MG/2.5 ML NEB SOLUTION NEB SCH ×3 (02:00→14:58)
[2019-01-08 05:42] VITALS: BP 156/88
[2019-01-08 06:40] LABS: BASOPHILS % (AUTO) 1.5 % (0.0-2.0); EOSINOPHILS % (AUTO) 3.1 % (1.0-6.0); HEMATOCRIT 38.2 % (36-46); HEMOGLOBIN 12.4 g/dL (12.0-16.0); LYMPHOCYTES % (AUTO) 18.1 % (22.0-44.0); MEAN CORPUSCULAR HEMOGLOBIN 26.3 pg (26.0-34.0); MEAN CORPUSCULAR HGB CONC 32.4 G/dL (31.0-37.0); MEAN CORPUSCULAR VOLUME 81 fL (80-100); MONOCYTES # (AUTO) 0.5 K/uL (0.1-1.0); MONOCYTES % (AUTO) 9.7 % (2.0-9.0); NEUTROPHILS # (AUTO) 3.7 K/uL (1.8-7.7); NEUTROPHILS % (AUTO) 67.6 % (40.0-70.0); PLATELET COUNT (AUTO) 275 K/uL (150-450); RED BLOOD CELL COUNT(AUTO) 4.71 MIL/uL (4.00-5.20); RED CELL DISTRIBUTION WIDTH 13.5 % (11.5-14.5)
[2019-01-08 07:04] LABS: ANION GAP 7 mmol/L (8-16); CALCIUM, TOTAL 9.1 mg/dL (8.8-10.5); CARBON DIOXIDE 28 mmol/L (22-29); CHLORIDE 106 mmol/L (98-107); CREATININE 0.71 mg/dL (0.60-1.30); GLOMERULAR FILTR. RATE CALC > 60 mL/min (>60); GLUCOSE,RANDOM 95 mg/dL (70-110); POTASSIUM 3.7 mmol/L (3.5-5.1); SODIUM SERUM 141 mmol/L (136-145); UREA NITROGEN, BLOOD 17 mg/dL (7-18)
[2019-01-08 07:19] VITALS: BP 158/88
[2019-01-08] MEDS ORDERED: LISINOPRIL 5 MG TABLET PO SCH (09:00)
[2019-01-08] MEDS ORDERED: LISINOPRIL 20 MG TABLET PO SCH (09:00)
[2019-01-08] MEDS: ATORVASTATIN CALCIUM 20 MG TABLET PO SCH (09:04)
[2019-01-08] MEDS: METOPROLOL SUCCINATE 25 MG ER TABLET PO SCH (09:04)
[2019-01-08] MEDS: AmLODIPine BESYLATE 10 MG TABLET PO SCH (09:04)
[2019-01-08] MEDS: CLOPIDOGREL BISULFATE 75 MG TABLET PO SCH (09:04)
[2019-01-08] MEDS: PANTOPRAZOLE SODIUM 40 MG/VIAL IVP SCH (09:05)
[2019-01-08] MEDS: LISINOPRIL 20 MG TABLET PO SCH (09:05)
[2019-01-08 11:04] VITALS: BP 142/80
[2019-01-08 15:36] VITALS: BP 146/80
[2019-01-08] MEDS ORDERED: LISI-662 PO (17:11)
[2019-01-08] MEDS ORDERED: METO25XL PO (17:12)
== END 2019-01-08 19:15 | disposition home or self-care (01) | DRG 313 ==
LOC: EMS 22:11 → 5N 01-07 03:23
PROVIDERS: ADMIT Internal Medicine; ATTEND Internal Medicine
DX: R07.89 Other chest pain (principal); E78.00 Pure hypercholesterolemia, unspecified; I10 Essential (primary) hypertension; Z86.73 Personal history of transient ischemic attack (TIA), and cerebral infarction without residual deficits; E78.5 Hyperlipidemia, unspecified; E87.6 Hypokalemia; J44.9 Chronic obstructive pulmonary disease, unspecified; Z82.49 Family history of ischemic heart disease and other diseases of the circulatory system; Z87.891 Personal history of nicotine dependence; Z91.14 Patient's other noncompliance with medication regimen
CPT/HCPCS: 83735; 84132; 92610; 93005; 93306; 94640; C9113; G0378

== ENCOUNTER 2019-02-16 01:10 | Inpatient (IN) | payer OTHER ==
[~2019-02-16] VITALS: Ht 144.8 cm; Wt 47.5 kg
[~2019-02-16 01:10] MED LIST changes: -ALBU8HFA4 IH; +LISI-662 PO; +METO25XL PO
[2019-02-16] MEDS ORDERED: DiphenhydrAMINE HCL 50 MG/ML VIAL ONE (01:32)
[2019-02-16] MEDS ORDERED: EPINEPHrine 1:1,000 [1 MG/ML] AMP ONE (01:32)
[2019-02-16] MEDS ORDERED: 0.9% SODIUM CHLORIDE 5 ML NEB SOLUTION NEB ONE ×2 (01:41→03:05)
[2019-02-16 01:43] LABS: BASOPHILS % (AUTO) 1.5 % (0.0-2.0); EOSINOPHILS % (AUTO) 1.7 % (1.0-6.0); HEMATOCRIT 37.5 % (36-46); LYMPHOCYTES # (AUTO) 1.5 K/uL (1.0-4.8); MEAN CORPUSCULAR HEMOGLOBIN 26.2 pg (26.0-34.0); MEAN CORPUSCULAR HGB CONC 32.1 G/dL (31.0-37.0); MEAN CORPUSCULAR VOLUME 82 fL (80-100); MONOCYTES # (AUTO) 0.5 K/uL (0.1-1.0); MONOCYTES % (AUTO) 9.7 % (2.0-9.0); NEUTROPHILS # (AUTO) 3.4 K/uL (1.8-7.7); NEUTROPHILS % (AUTO) 60.1 % (40.0-70.0); PLATELET COUNT (AUTO) 277 K/uL (150-450); RED CELL DISTRIBUTION WIDTH 13.2 % (11.5-14.5)
[2019-02-16] MEDS ORDERED: ONDANSETRON HCL 4 MG/2 ML VIAL IVP ONE (01:45)
[2019-02-16] MEDS ORDERED: EPINEPHrine 1:1,000 [1 MG/ML] AMP SQ ONE (01:45)
[2019-02-16] MEDS ORDERED: DiphenhydrAMINE HCL 50 MG/ML VIAL IVP ONE (01:45)
[2019-02-16] MEDS ORDERED: FAMOTIDINE 10 MG/ML 2 ML VIAL IVP ONE (01:45)
[2019-02-16] MEDS ORDERED: MethylPREDNISolone SOD SUCC 125 MG/2 ML VIAL IVP ONE (01:45)
[2019-02-16] MEDS ORDERED: ALBUTEROL SULFATE 2.5 MG/0.5 ML NEB SOLUTION NEB ONE ×3 (01:45→02:45)
[2019-02-16 01:52] LABS: ANION GAP 11 mmol/L (8-16); CALCIUM, TOTAL 9.1 mg/dL (8.8-10.5); CARBON DIOXIDE 28 mmol/L (22-29); CHLORIDE 104 mmol/L (98-107); CREATININE 0.86 mg/dL (0.60-1.30); GLOMERULAR FILTR. RATE CALC > 60 mL/min (>60); GLUCOSE,RANDOM 112 mg/dL (70-110); POTASSIUM 3.6 mmol/L (3.5-5.1); SODIUM SERUM 143 mmol/L (136-145); UREA NITROGEN, BLOOD 22 mg/dL (7-18)
[2019-02-16 01:54] LABS: INR 0.9 (0.9-1.1); PROTHROMBIN TIME 9.8 SEC (9.4-11.6)
[2019-02-16 01:58] LABS: ALANINE AMINOTRANSFERASE 13 U/L (12-78); ALBUMIN 3.8 g/dL (3.4-5.0); ALKALINE PHOSPHATASE 84 U/L (46-116); ASPARTATE AMINOTRANSFERASE 9 U/L (15-37); BILIRUBIN,TOTAL 0.2 mg/dL (0.1-1.0); CREATINE KINASE, TOTAL ONLY 42 U/L (26-192); TOTAL PROTEIN, SERUM 7.3 g/dL (6.4-8.2)
[2019-02-16 02:02] LABS: B-TYPE NATRIURETIC PEPTIDE 51 pg/mL (0-100)
[2019-02-16] MEDS ORDERED: LORazepam 1 MG TABLET PO ONE (03:45)
[2019-02-16] MEDS ORDERED: NITROGLYCERIN 0.4 MG SUBLINGUAL TABLET #25 SL ONE (05:30)
[2019-02-16] MEDS ORDERED: ASPIRIN 325 MG TABLET PO ONE (05:30)
[2019-02-16 08:45] VITALS: BP 121/79
[2019-02-16] MEDS ORDERED: ACETAMINOPHEN 325 MG TABLET PO PRN (09:00)
[2019-02-16] MEDS ORDERED: METOPROLOL SUCCINATE 25 MG ER TABLET PO SCH (09:00)
[2019-02-16] MEDS ORDERED: MAGNESIUM HYDROXIDE SUSPENSION 30 ML UDCUP PO PRN (09:00)
[2019-02-16] MEDS ORDERED: ALBUTEROL SULFATE 2.5 MG/0.5 ML NEB SOLUTION NEB PRN (09:00)
[2019-02-16] MEDS ORDERED: OxyCODONE HCL/ACETAMINOPHEN 5-325 MG TABLET PO PRN ×2 (09:00)
[2019-02-16] MEDS ORDERED: ONDANSETRON HCL 4 MG/2 ML VIAL IVP PRN (09:00)
[2019-02-16] MEDS ORDERED: 0.9% SODIUM CHLORIDE 10 ML SYRINGE IVP PRN (09:00)
[2019-02-16] MEDS: PANTOPRAZOLE SODIUM 40 MG/VIAL IVP SCH (09:35)
[2019-02-16] MEDS: DOCUSATE SODIUM 100 MG CAPSULE PO SCH ×2 (09:36→21:36)
[2019-02-16] MEDS: MethylPREDNISolone SOD SUCC 40 MG/ML VIAL IVP SCH ×2 (09:36→21:36)
[2019-02-16] MEDS: CLOPIDOGREL BISULFATE 75 MG TABLET PO SCH (09:36)
[2019-02-16] MEDS: NITROGLYCERIN 2% (1 GM=INCH) PACKET TP SCH ×3 (09:37→18:17)
[2019-02-16] MEDS: AmLODIPine BESYLATE 10 MG TABLET PO SCH (09:37)
[2019-02-16] MEDS: LISINOPRIL 20 MG TABLET PO SCH (09:37)
[2019-02-16] MEDS: FLUoxetine HCL 10 MG CAPSULE PO SCH (11:00)
[2019-02-16 11:55] VITALS: BP 120/76
[2019-02-16] MEDS ORDERED: METOPROLOL SUCCINATE 50 MG ER TABLET PO ONE (13:45)
[2019-02-16 13:59] LABS: APPEARANCE,URINE CLEAR (CLEAR); BILIRUBIN,URINE NEGATIVE (NEGATIVE); GLUCOSE, URINE (UA) >=1000 mg/dL (NEGATIVE); KETONES,URINE NEGATIVE (NEGATIVE); LEUKOCYTE ESTERASE ,URINE NEGATIVE (NEGATIVE); NITRATE,URINE NEGATIVE (NEGATIVE); OCCULT BLOOD,URINE NEGATIVE (NEGATIVE); PROTEIN,URINE NEGATIVE (NEGATIVE); UROBILINOGEN,URINE 0.2 mg/dL (<=1.0)
[2019-02-16 14:12] LABS: BACTERIA,URINE None Seen /HPF (None Seen); RBC,URINE None Seen /HPF (0-2); WBC,URINE None Seen /HPF (0-5)
[2019-02-16] MEDS: ALBUTEROL SULFATE 2.5 MG/0.5 ML NEB SOLUTION NEB SCH ×2 (14:53→20:32)
[2019-02-16] MEDS: IPRATROPIUM BROMIDE 0.5 MG/2.5 ML NEB SOLUTION NEB SCH ×2 (14:53→20:32)
[2019-02-16 16:00] VITALS: BP 126/76
[2019-02-16 19:21] VITALS: BP 106/55
[2019-02-16] MEDS: METOPROLOL SUCCINATE 50 MG ER TABLET PO SCH (21:36)
[2019-02-16] MEDS: ATORVASTATIN CALCIUM 20 MG TABLET PO SCH (21:36)
[2019-02-17] VITALS (9 sets, daily range): BP systolic 98–138; BP diastolic 58–91
[2019-02-17] MEDS: ALBUTEROL SULFATE 2.5 MG/0.5 ML NEB SOLUTION NEB SCH ×4 (02:00→20:52)
[2019-02-17] MEDS: IPRATROPIUM BROMIDE 0.5 MG/2.5 ML NEB SOLUTION NEB SCH ×4 (02:00→20:52)
[2019-02-17 06:00] LABS: EOSINOPHILS % (AUTO) 0 % (1.0-6.0); HEMATOCRIT 35.8 % (36-46); HEMOGLOBIN 11.4 g/dL (12.0-16.0); LYMPHOCYTES # (AUTO) 1.3 K/uL (1.0-4.8); LYMPHOCYTES % (AUTO) 6.7 % (22.0-44.0); MEAN CORPUSCULAR HGB CONC 31.8 G/dL (31.0-37.0); MEAN CORPUSCULAR VOLUME 82 fL (80-100); MONOCYTES # (AUTO) 0.9 K/uL (0.1-1.0); MONOCYTES % (AUTO) 4.6 % (2.0-9.0); NEUTROPHILS # (AUTO) 17.7 K/uL (1.8-7.7); PLATELET COUNT (AUTO) 302 K/uL (150-450); RED BLOOD CELL COUNT(AUTO) 4.39 MIL/uL (4.00-5.20); RED CELL DISTRIBUTION WIDTH 13.4 % (11.5-14.5)
[2019-02-17] MEDS: NITROGLYCERIN 2% (1 GM=INCH) PACKET TP SCH ×4 (06:00→18:25)
[2019-02-17 06:17] LABS: NEUTROPHILS % (AUTO) 88.7 % (40.0-70.0)
[2019-02-17 06:31] LABS: ALANINE AMINOTRANSFERASE 15 U/L (12-78); ALBUMIN 3.4 g/dL (3.4-5.0); ALKALINE PHOSPHATASE 68 U/L (46-116); ANION GAP 11 mmol/L (8-16); ASPARTATE AMINOTRANSFERASE 13 U/L (15-37); BILIRUBIN,TOTAL 0.4 mg/dL (0.1-1.0); CARBON DIOXIDE 24 mmol/L (22-29); CHLORIDE 105 mmol/L (98-107); CREATININE 0.86 mg/dL (0.60-1.30); GLUCOSE,RANDOM 122 mg/dL (70-110); POTASSIUM 3.7 mmol/L (3.5-5.1); SODIUM SERUM 140 mmol/L (136-145); TOTAL PROTEIN, SERUM 6.8 g/dL (6.4-8.2); UREA NITROGEN, BLOOD 24 mg/dL (7-18)
[2019-02-17 06:33] LABS: GLOMERULAR FILTR. RATE CALC > 60 mL/min (>60)
[2019-02-17] MEDS: METOPROLOL SUCCINATE 50 MG ER TABLET PO SCH ×2 (09:00→20:50)
[2019-02-17] MEDS: PANTOPRAZOLE SODIUM 40 MG/VIAL IVP SCH (09:00)
[2019-02-17] MEDS: LISINOPRIL 20 MG TABLET PO SCH (09:00)
[2019-02-17] MEDS: DOCUSATE SODIUM 100 MG CAPSULE PO SCH ×2 (09:00→20:50)
[2019-02-17] MEDS: AmLODIPine BESYLATE 10 MG TABLET PO SCH (09:00)
[2019-02-17] MEDS ORDERED: SODIUM BICARBONATE 50 MEQ/50 ML VIAL ONE (09:19)
[2019-02-17] MEDS ORDERED: IOHEXOL 300 MG/ML 150 ML VIAL ONE (09:19)
[2019-02-17] MEDS ORDERED: LIDOCAINE/PF 1% 30 ML VIAL ONE (09:19)
[2019-02-17] MEDS ORDERED: HEPARIN SODIUM 1000 UNITS/NS 1,000 ML ONE (09:19)
[2019-02-17] MEDS ORDERED: HEPARIN SODIUM 2,000 UNITS in HEPARIN SODIUM 1000 UNITS/NS 1,000 ML IARTER ONE (09:40)
[2019-02-17] MEDS ORDERED: SODIUM CHLORIDE 0.9% 500 ML IV ONE (09:40)
[2019-02-17] MEDS ORDERED: FentaNYL CITRATE-PF 100 MCG/2 ML VIAL ONE (09:42)
[2019-02-17] MEDS ORDERED: MIDAZOLAM HCL 2 MG/2 ML VIAL ONE (09:43)
[2019-02-17] MEDS ORDERED: IOHEXOL 300 MG/ML 150 ML VIAL IARTER ONE (09:45)
[2019-02-17] MEDS ORDERED: MIDAZOLAM HCL 2 MG/2 ML VIAL IVP ONE (09:45)
[2019-02-17] MEDS ORDERED: LIDOCAINE 1% 30 ML/SOD BICARB 8.4% 4 ML SQ ONE (09:45)
[2019-02-17] MEDS ORDERED: FentaNYL CITRATE-PF 100 MCG/2 ML VIAL IVP ONE (09:45)
[2019-02-17] MEDS: MethylPREDNISolone SOD SUCC 40 MG/ML VIAL IVP SCH ×2 (12:09→20:49)
[2019-02-17] MEDS: CLOPIDOGREL BISULFATE 75 MG TABLET PO SCH (12:09)
[2019-02-17] MEDS: FLUoxetine HCL 10 MG CAPSULE PO SCH (12:09)
[2019-02-17] MEDS: ATORVASTATIN CALCIUM 20 MG TABLET PO SCH (20:50)
[2019-02-18] MEDS: IPRATROPIUM BROMIDE 0.5 MG/2.5 ML NEB SOLUTION NEB SCH ×4 (02:00→19:48)
[2019-02-18] MEDS: ALBUTEROL SULFATE 2.5 MG/0.5 ML NEB SOLUTION NEB SCH ×4 (02:00→19:48)
[2019-02-18 04:10] VITALS: BP 142/71
[2019-02-18] MEDS: NITROGLYCERIN 2% (1 GM=INCH) PACKET TP SCH ×4 (06:00→17:38)
[2019-02-18 06:25] LABS: BASOPHILS % (AUTO) 0.1 % (0.0-2.0); EOSINOPHILS % (AUTO) 0 % (1.0-6.0); HEMATOCRIT 36.3 % (36-46); HEMOGLOBIN 11.5 g/dL (12.0-16.0); LYMPHOCYTES # (AUTO) 2.3 K/uL (1.0-4.8); LYMPHOCYTES % (AUTO) 14.6 % (22.0-44.0); MEAN CORPUSCULAR HGB CONC 31.7 G/dL (31.0-37.0); MEAN CORPUSCULAR VOLUME 82 fL (80-100); MONOCYTES # (AUTO) 0.9 K/uL (0.1-1.0); MONOCYTES % (AUTO) 5.4 % (2.0-9.0); NEUTROPHILS # (AUTO) 12.6 K/uL (1.8-7.7); NEUTROPHILS % (AUTO) 79.9 % (40.0-70.0); PLATELET COUNT (AUTO) 295 K/uL (150-450); RED BLOOD CELL COUNT(AUTO) 4.43 MIL/uL (4.00-5.20); RED CELL DISTRIBUTION WIDTH 13.3 % (11.5-14.5)
[2019-02-18 06:45] LABS: ALANINE AMINOTRANSFERASE 19 U/L (12-78); ALBUMIN 3.4 g/dL (3.4-5.0); ALKALINE PHOSPHATASE 68 U/L (46-116); ANION GAP 7 mmol/L (8-16); ASPARTATE AMINOTRANSFERASE 12 U/L (15-37); BILIRUBIN,TOTAL 0.3 mg/dL (0.1-1.0); CALCIUM, TOTAL 8.6 mg/dL (8.8-10.5); CARBON DIOXIDE 28 mmol/L (22-29); CHLORIDE 107 mmol/L (98-107); CREATININE 0.78 mg/dL (0.60-1.30); GLOMERULAR FILTR. RATE CALC > 60 mL/min (>60); GLUCOSE,RANDOM 92 mg/dL (70-110); POTASSIUM 3.9 mmol/L (3.5-5.1); SODIUM SERUM 142 mmol/L (136-145); TOTAL PROTEIN, SERUM 6.6 g/dL (6.4-8.2); UREA NITROGEN, BLOOD 27 mg/dL (7-18)
[2019-02-18 07:25] VITALS: BP 173/74
[2019-02-18] MEDS: DOCUSATE SODIUM 100 MG CAPSULE PO SCH ×2 (08:43→21:02)
[2019-02-18] MEDS: LISINOPRIL 20 MG TABLET PO SCH (08:43)
[2019-02-18] MEDS: METOPROLOL SUCCINATE 50 MG ER TABLET PO SCH ×2 (08:43→21:00)
[2019-02-18] MEDS: AmLODIPine BESYLATE 10 MG TABLET PO SCH (08:43)
[2019-02-18] MEDS: CLOPIDOGREL BISULFATE 75 MG TABLET PO SCH (08:44)
[2019-02-18] MEDS: MethylPREDNISolone SOD SUCC 40 MG/ML VIAL IVP SCH ×2 (08:44→21:02)
[2019-02-18] MEDS: PANTOPRAZOLE SODIUM 40 MG/VIAL IVP SCH (08:44)
[2019-02-18] MEDS: FLUoxetine HCL 10 MG CAPSULE PO SCH (08:46)
[2019-02-18 11:37] VITALS: BP 151/74
[2019-02-18] MEDS: ASPIRIN 81 MG EC TABLET PO SCH (14:59)
[2019-02-18 15:49] VITALS: BP 143/73
[2019-02-18 19:42] VITALS: BP 119/59
[2019-02-18] MEDS: ATORVASTATIN CALCIUM 20 MG TABLET PO SCH (21:02)
[2019-02-19 00:30] VITALS: BP 139/79
[2019-02-19] MEDS: IPRATROPIUM BROMIDE 0.5 MG/2.5 ML NEB SOLUTION NEB SCH ×3 (02:22→14:36)
[2019-02-19] MEDS: ALBUTEROL SULFATE 2.5 MG/0.5 ML NEB SOLUTION NEB SCH ×3 (02:23→14:36)
[2019-02-19 04:53] VITALS: BP 142/76
[2019-02-19] MEDS: NITROGLYCERIN 2% (1 GM=INCH) PACKET TP SCH ×3 (06:00→14:30)
[2019-02-19 06:27] LABS: BASOPHILS % (AUTO) 0.1 % (0.0-2.0); EOSINOPHILS % (AUTO) 0 % (1.0-6.0); HEMATOCRIT 36.7 % (36-46); HEMOGLOBIN 11.8 g/dL (12.0-16.0); LYMPHOCYTES # (AUTO) 0.9 K/uL (1.0-4.8); LYMPHOCYTES % (AUTO) 7.5 % (22.0-44.0); MEAN CORPUSCULAR HEMOGLOBIN 26.2 pg (26.0-34.0); MEAN CORPUSCULAR HGB CONC 32.2 G/dL (31.0-37.0); MEAN CORPUSCULAR VOLUME 81 fL (80-100); MONOCYTES # (AUTO) 0.2 K/uL (0.1-1.0); MONOCYTES % (AUTO) 1.8 % (2.0-9.0); PLATELET COUNT (AUTO) 294 K/uL (150-450); RED BLOOD CELL COUNT(AUTO) 4.52 MIL/uL (4.00-5.20); RED CELL DISTRIBUTION WIDTH 13.8 % (11.5-14.5)
[2019-02-19 06:41] LABS: ALANINE AMINOTRANSFERASE 26 U/L (12-78); ALBUMIN 3.7 g/dL (3.4-5.0); ALKALINE PHOSPHATASE 76 U/L (46-116); ANION GAP 11 mmol/L (8-16); ASPARTATE AMINOTRANSFERASE 14 U/L (15-37); BILIRUBIN,TOTAL 0.3 mg/dL (0.1-1.0); CALCIUM, TOTAL 8.8 mg/dL (8.8-10.5); CARBON DIOXIDE 27 mmol/L (22-29); CHLORIDE 104 mmol/L (98-107); CREATININE 0.74 mg/dL (0.60-1.30); GLUCOSE,RANDOM 126 mg/dL (70-110); POTASSIUM 3.9 mmol/L (3.5-5.1); SODIUM SERUM 142 mmol/L (136-145); TOTAL PROTEIN, SERUM 7.3 g/dL (6.4-8.2); UREA NITROGEN, BLOOD 24 mg/dL (7-18)
[2019-02-19 06:42] LABS: GLOMERULAR FILTR. RATE CALC > 60 mL/min (>60); NEUTROPHILS % (AUTO) 90.6 % (40.0-70.0)
[2019-02-19 08:18] VITALS: BP 167/78
[2019-02-19] MEDS: FLUoxetine HCL 10 MG CAPSULE PO SCH (08:24)
[2019-02-19] MEDS: LISINOPRIL 20 MG TABLET PO SCH (08:24)
[2019-02-19] MEDS: ASPIRIN 81 MG EC TABLET PO SCH (08:24)
[2019-02-19] MEDS: DOCUSATE SODIUM 100 MG CAPSULE PO SCH (08:24)
[2019-02-19] MEDS: AmLODIPine BESYLATE 10 MG TABLET PO SCH (08:25)
[2019-02-19] MEDS: PANTOPRAZOLE SODIUM 40 MG/VIAL IVP SCH (08:25)
[2019-02-19] MEDS ORDERED: CLOPIDOGREL BISULFATE 75 MG TABLET PO SCH (09:00)
[2019-02-19] MEDS ORDERED: METOPROLOL SUCCINATE 25 MG ER TABLET PO SCH (09:00)
[2019-02-19 12:10] VITALS: BP 155/79
== END 2019-02-19 15:05 | disposition home or self-care (01) | DRG 281 ==
LOC: EMS 01:12 → 5N 07:59
PROVIDERS: ADMIT Internal Medicine; ATTEND Internal Medicine
PROC: 4A023N7 Measurement of Cardiac Sampling and Pressure, Left Heart, Percutaneous Approach (ICD-10-PCS; principal; 2019-02-17)
PROC: B2111ZZ Fluoroscopy of Multiple Coronary Arteries using Low Osmolar Contrast (ICD-10-PCS; 2019-02-17)
PROC: B2151ZZ Fluoroscopy of Left Heart using Low Osmolar Contrast (ICD-10-PCS; 2019-02-17)
DX: I21.4 Non-ST elevation (NSTEMI) myocardial infarction (principal); J44.1 Chronic obstructive pulmonary disease with (acute) exacerbation; I10 Essential (primary) hypertension; R73.9 Hyperglycemia, unspecified; E78.00 Pure hypercholesterolemia, unspecified; I25.10 Atherosclerotic heart disease of native coronary artery without angina pectoris; K21.9 Gastro-esophageal reflux disease without esophagitis; Z79.02 Long term (current) use of antithrombotics/antiplatelets; Z86.73 Personal history of transient ischemic attack (TIA), and cerebral infarction without residual deficits
CPT/HCPCS: 83735; 93005; 93306; 94640; 96374; 96375; 97166; 97535; C9113; G0378; J0171; J1200; J1644; J2250; J2405; J2920; J2930; J3010; J3490; Q9967